=== PATIENT | male | born 1965 | race Caucasian/White ===

== ENCOUNTER → 2019-11-08 | Outpatient (CLI) | payer BC ==
--- NOTE | 2019-11-08 12:23 | RADIOLOGY REPORT (SQ) ---
EXAM DESCRIPTION: U/S ABDOMEN LIMITED W/O DOP IMAGES COMPLETED DATE/TIME: 11/08/2019 9:43 am REASON FOR STUDY: B19.20 UNSPECIFIED VIRAL HEPATITIS C WITHOUT HEPATIC COMA K74.60 UNSPECIFIE B19.20 UNSPECIFIED VIRAL HEPATITIS C WITHOUT HEPATIC COMA K74.60 UNSPECIFIED CIRRHOSIS OF LIVER COMPARISON: None. TECHNIQUE: Dynamic and static grayscale images acquired of the abdomen and recorded on PACS. Additio nal selected color Doppler and spectral images recorded. LIMITATIONS: None. FINDINGS: PANCREAS: Not seen. LIVER: Normal size, heterogeneous echotexture. No masses. Increased echogenicity. LIVER VASCULATURE: Normal directional flow of the main portal vein and hepatic veins. GALLBLADDER: No stones. Normal wall thickness. No pericholecystic fluid. ULTRASOUND-DETECTED TROTTER'S SIGN: Negative. INTRAHEPATIC DUCTS AND COMMON DUCT: Common bile duct is dilated to 12 mm. There does not appear to b e significant intrahepatic ductal dilatation. AORTA: No aneurysm. RIGHT KIDNEY: Normal size, 10.4 cm. Normal echogenicity. No solid or suspicious masses. No hydroneph rosis. No calcifications. PERITONEAL AND RIGHT PLEURAL SPACE: No ascites or effusions. OTHER: No other significant findings. IMPRESSION: Hepatic steatosis. The liver is somewhat heterogeneous but no definable masses. Gallbl adder is normal. Common bile duct is dilated but there does not appear to be significant intrahepati c ductal dilatation. Correlate for biliary obstruction. TECHNICAL DOCUMENTATION: JOB ID: [id number] 2010 [employer]- All Rights Reserved Reading location - IP/workstation name: [email or web address]
== END ==
LOC: RAD 09:03
PROVIDERS: ATTEND Internal Medicine Gastroenterology
DX: B19.20 Unspecified viral hepatitis C without hepatic coma (principal); K74.60 Unspecified cirrhosis of liver
CPT/HCPCS: 76705

== ENCOUNTER 2019-11-17 20:17 | Emergency (ER) | payer BC ==
--- NOTE | 2019-11-17 21:05 | ER Document Report ---
ED Medical Screen (RME) - General Chief Complaint: Nausea Stated Complaint: NAUSEA/POSSIBLE COVID EXPOSURE Time Seen by Provider: 11/17/19 20:57 Primary Care Provider: JEREMY LEMOS MD [Primary Care Provider] - Follow up as needed Mode of Arrival: Ambulatory Information source: Patient Notes: HPI; 54-year-old male presents emergency room complaining of subjective fever, chills, body aches and sore throat as well as a headache. States his symptoms started approximately 24 hours ago. Been taking Tylenol without relief. Denies any recent travel. 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 No other known ill contacts. PE: Alert and oriented x3. Mild distress noted. Lungs: Clear to auscultation without rales, rhonchi, wheezes. Heart: Regular rate and rhythm without murmurs, rubs, gallops. I have greeted and performed a rapid initial assessment of this patient. A comprehensive ED assessment and evaluation of the patient, analysis of test results and completion of the medical decision making process will be conducted by additional ED providers. I have specifically instructed the patient or family members with the patient to immediately return to any nursing staff should anything change in the patient's condition or with their chief complaint. TRAVEL OUTSIDE OF THE [place] IN LAST 30 DAYS: No Physical Exam - Vital signs Vitals: Temp Pulse Resp BP Pulse Ox 97.3 F 54 L 20 172/83 H 100 11/17/19 20:50 11/17/19 20:50 11/17/19 20:50 11/17/19 20:50 11/17/19 20:50 Course - Vital Signs Vital signs: Temp Pulse Resp BP Pulse Ox 97.3 F 54 L 20 172/83 H 100 11/17/19 20:50 11/17/19 20:50 11/17/19 20:50 11/17/19 20:50 11/17/19 20:50 Doctor's Discharge - Discharge Referrals: JEREMY LEMOS MD [Primary Care Provider] - Follow up as needed
[2019-11-17 22:39] LABS: ABSOLUTE LYMPHOCYTES (AUTO) 1.2 10^3/uL (0.5-4.7); ABSOLUTE MONOCYTES (AUTO) 0.3 10^3/uL (0.1-1.4); ABSOLUTE NEUT (AUTO) 4.6 10^3/uL (1.7-8.2); BASOPHILS % (AUTO) 0.3 % (0-2); EOSINOPHILS % (AUTO) 0.3 % (0-6); HEMATOCRIT 43.5 % (37.9-51.0); HEMOGLOBIN 15.3 g/dL (13.5-17.0); LYMPHOCYTES % (AUTO) 19.9 % (13-45); MEAN CORPUSCULAR HEMOGLOBIN 31.6 pg (27.0-33.4); MEAN CORPUSCULAR HGB CONC 35.2 g/dL (32.0-36.0); MEAN CORPUSCULAR VOLUME 90 fl (80-97); MONOCYTES % (AUTO) 4.1 % (3-13); PLATELET COUNT 199 10^3/uL (150-450); RED BLOOD COUNT 4.86 10^6/uL (4.35-5.55); RED CELL DISTRIBUTION WIDTH 13.5 % (11.5-14.0); SEGMENTED NEUTROPHILS % (AUTO) 75.4 % (42-78); TOTAL CELLS COUNTED % (AUTO) 100 %; WHITE BLOOD COUNT 6.1 10^3/uL (4.0-10.5)
--- NOTE | 2019-11-17 22:49 | RADIOLOGY REPORT (SQ) ---
EXAM DESCRIPTION: XR CHEST 1 VIEW COMPLETED DATE/TME: 11/17/2019 21:04 CLINICAL HISTORY: 54 years, Male, cough COMPARISON: None. NUMBER OF VIEWS: 1 TECHNIQUE: Portable LIMITATIONS: None. FINDINGS: Heart size normal. Minimal scarring left lung base. Lungs otherwise clear. No pneumothorax IMPRESSION: No acute cardiopulmonary process copyright 2010 [employer]- All Rights Reserved
[2019-11-17 22:59] LABS: ALBUMIN 4.7 g/dL (3.5-5.0); ALKALINE PHOSPHATASE 48 U/L (38-126); ANION GAP 13 (5-19); ASPARTATE AMINO TRANSFERASE 32 U/L (17-59); BILIRUBIN,DIRECT 0.4 mg/dL (0.0-0.4); BILIRUBIN,TOTAL 0.8 mg/dL (0.2-1.3); BLOOD UREA NITROGEN 17 mg/dL (7-20); CALCIUM 9.5 mg/dL (8.4-10.2); CARBON DIOXIDE 23 mmol/L (22-30); CHLORIDE 103 mmol/L (98-107); GLUCOSE 117 mg/dL (75-110); POTASSIUM 4.6 mmol/L (3.6-5.0); TOTAL PROTEIN 7.8 g/dL (6.3-8.2)
[2019-11-17 23:14] LABS: A TYPE INFLUENZA AG NEGATIVE (NEGATIVE); B INFLUENZA AG NEGATIVE (NEGATIVE)
[2019-11-18] MEDS ORDERED: ONDANSETRON ODT 4 MG TAB (6 TAB/ER DISP) PO PRN (01:49)
[2019-11-18] MEDS ORDERED: ACETAMINOPHEN 325 MG TABLET PO ONE (01:49)
[2019-11-18] MEDS ORDERED: PREDNISONE 20 MG TABLET PO ONE (01:49)
[2019-11-18] MEDS ORDERED: IBUPROFEN 800 MG TABLET PO ONE (01:50)
--- NOTE | 2019-11-18 01:54 | ER Document Report ---
ED General - General Chief Complaint: Flu Symptoms Stated Complaint: NAUSEA/POSSIBLE COVID EXPOSURE Time Seen by Provider: 11/17/19 20:57 Primary Care Provider: JEREMY LEMOS MD [ACTIVE STAFF] - Follow up as needed Mode of Arrival: Ambulatory Information source: Patient Notes: 54-year-old male patient presenting to the emergency department chief complaint of possible COVID-19 exposure. Patient reports he has been around multiple people that he thinks may have been sick. He reports he has been having cough, congestion, nausea, vomiting and fevers at home for the last 2 to 3 days. TRAVEL OUTSIDE OF THE [place] IN LAST 30 DAYS: No Past Medical History - General Information source: Patient - Social History Smoking Status: Current Every Day Smoker Frequency of alcohol use: None Drug Abuse: None Family History: Reviewed & Not Pertinent - Medical History Medical History: Negative Surgical Hx: Negative Review of Systems - Review of Systems Constitutional: Chills, Fever EENT: Nose congestion Respiratory: Cough Gastrointestinal: Nausea -: Yes All other systems reviewed and negative Physical Exam - Vital signs Vitals: Temp Pulse Resp BP Pulse Ox 97.3 F 54 L 20 172/83 H 100 11/17/19 20:50 11/17/19 20:50 11/17/19 20:50 11/17/19 20:50 11/17/19 20:50 - Notes Notes: PHYSICAL EXAMINATION: GENERAL: Disheveled, unkempt, no acute distress. HEAD: Atraumatic, normocephalic. EYES: Pupils equal round and reactive to light, extraocular movements intact, sclera anicteric, conjunctiva are normal. ENT: Nares patent, oropharynx clear without exudates. Moist mucous membranes. NECK: Normal range of motion, supple without lymphadenopathy LUNGS: Breath sounds clear to auscultation bilaterally and equal. No wheezes rales or rhonchi. HEART: Regular rate and rhythm without murmurs ABDOMEN: Soft, nontender, nondistended abdomen. No guarding, no rebound. No masses appreciated. Musculoskeletal: Normal range of motion, no pitting or edema. No cyanosis. NEUROLOGICAL: Cranial nerves grossly intact. Normal speech, normal gait. Normal sensory, motor exams PSYCH: Normal mood, normal affect. SKIN: Warm, Dry, normal turgor, no rashes or lesions noted. Course - Re-evaluation Re-evalutation: Laboratory 11/17/19 11/17/19 11/17/19 22:15 22:15 22:15 WBC 6.1 RBC 4.86 Hgb 15.3 Hct 43.5 MCV 90 MCH 31.6 MCHC 35.2 RDW 13.5 Plt Count 199 Lymph % (Auto) 19.9 Whitley % (Auto) 4.1 Eos % (Auto) 0.3 Baso % (Auto) 0.3 Absolute Neuts (auto) 4.6 Absolute Lymphs (auto) 1.2 Absolute Monos (auto) 0.3 Absolute Eos (auto) 0.0 Absolute Basos (auto) 0.0 Seg Neutrophils % 75.4 Sodium 139.1 Potassium 4.6 Chloride 103 Carbon Dioxide 23 Anion Gap 13 BUN 17 Creatinine 0.93 Est GFR ( Amer) > 60 Est GFR (MDRD) Non-Af > 60 Glucose 117 H Calcium 9.5 Total Bilirubin 0.8 Direct Bilirubin 0.4 Neonat Total Bilirubin Not Reportable Neonat Direct Bilirubin Not Reportable Neonat Indirect Bili Not Reportable AST 32 ALT 22 Alkaline Phosphatase 48 Total Protein 7.8 Albumin 4.7 COVID-19 Source COVID-19 (JANI) Influenza A (Rapid) NEGATIVE Influenza B (Rapid) NEGATIVE 11/18/19 01:38 WBC RBC Hgb Hct MCV MCH MCHC RDW Plt Count Lymph % (Auto) Whitley % (Auto) Eos % (Auto) Baso % (Auto) Absolute Neuts (auto) Absolute Lymphs (auto) Absolute Monos (auto) Absolute Eos (auto) Absolute Basos (auto) Seg Neutrophils % Sodium Potassium Chloride Carbon Dioxide Anion Gap BUN Creatinine Est GFR ( Amer) Est GFR (MDRD) Non-Af Glucose Calcium Total Bilirubin Direct Bilirubin Neonat Total Bilirubin Neonat Direct Bilirubin Neonat Indirect Bili AST ALT Alkaline Phosphatase Total Protein Albumin COVID-19 Source See comment COVID-19 (JANI) Not Detected Influenza A (Rapid) Influenza B (Rapid) Chest X-Ray 11/17/19 21:04 IMPRESSION: No acute cardiopulmonary process copyright 2011 [employer]- All Rights Reserved - Vital Signs Vital signs: Temp Pulse Resp BP Pulse Ox 98.2 F 61 16 159/85 H 98 11/18/19 03:54 11/18/19 03:54 11/18/19 03:54 11/18/19 03:54 11/18/19 03:54 - Laboratory Result Diagrams: 11/17/19 22:15 11/17/19 22:15 Laboratory results interpreted by me: 11/17/19 22:15 Glucose 117 H Discharge - Discharge Clinical Impression: Encounter for laboratory testing for COVID-19 virus, Viral illness, Dental infection Condition: Stable Disposition: HOME, SELF-CARE Instructions: COVID-19 Guidance for Persons Under Investigation, Viral Syndrome ([facility]) Additional Instructions: If you were prescribed medications during today's visit please take them exactly as prescribed. Push fluids. Get plenty of rest. Tylenol or Motrin for fever and body aches. Good handwashing and stay away from others. Follow-up with your dentist regarding her dental infection. Return to the emergency department with any new or worsening symptoms such as difficulty breathing, or any other worsening symptoms. Prescriptions: Amoxicillin 1 tab PO TID #30 tab Prednisone [Deltasone 20 mg Tablet] 3 tab PO DAILY 4 Days #12 tablet Referrals: JEREMY LEMOS MD [ACTIVE STAFF] - Follow up as needed
[2019-11-18 03:56] VITALS: BP 159/85
== END 2019-11-18 03:54 | disposition home or self-care (01) ==
LOC: ER 20:17
DX: K04.7 Periapical abscess without sinus (principal); B34.9 Viral infection, unspecified; Z20.828 Contact with and (suspected) exposure to other viral communicable diseases; R11.2 Nausea with vomiting, unspecified; R05 Cough; R68.89 Other general symptoms and signs; F17.200 Nicotine dependence, unspecified, uncomplicated
CPT/HCPCS: 99285; 36415; 85025; 80053; 87804; 71045; U0003; J7512; C9803; 87635